=== PATIENT | female | born 1935 | race Two or more races ===

== ENCOUNTER 2017-04-04 22:11 | Inpatient (IN) | payer MEDICARE, OTHER ==
[~2017-04-04] VITALS: Ht 162.6 cm; Wt 76.7 kg
[2017-04-04 20:00] VITALS: BP 146/66
[2017-04-05] MEDS ORDERED: MAGNESIUM HYDROXIDE 30 ML UDC PO PRN (02:00)
[2017-04-05] MEDS ORDERED: MAG HYDROX/AL HYDROX/SIMETH 30 ML UDC PO PRN (02:00)
[2017-04-05] MEDS ORDERED: ACETAMINOPHEN 325 MG TABLET PO PRN (02:00)
--- NOTE | 2017-04-05 02:00 | NUR ---
GPS RN NOTES: ADMITTED A 81-Y/O, FEMALE, FROM [facility] TRANSPORTED VIA GURNEY ACCOMPANIED BY 2 AMBULANCE PERSONNEL, ADMITTED ON 5150 HOLD FOR DTS. PER HOLD PATIENT WANTED TO HURT AND KILL HERSELF, SHE WANTED TO BECAUSE SHE STATED NO ONE CARES, SHE WANTED TO GIVE AWAY HER THINGS, THEN DRINK SOMETHING THAT WOULD KILL HER. UPON FACE TO FACE EVALUATION, PATIENT IS ALERT, ORIENTED X1, ANXIOUS WITH CONFUSION. PATIENT DID NOT VERBALIZE SI/HI/DENIES VISUAL/AUDITORY HALLUCINATIONS AT THIS TIME. PATIENT SHOWS NO S/S OF PAIN, RESPIRATION EVEN, BREATHING PATTERN NON-LABORED, PATIENT RIGHT WAS EXPLAINED TO HIM AND PATIENT RIGHT BOOKLET WAS GIVEN TO HER. PATIENT WAS ORIENTED IN THE UNIT AND UNIT POLICIES, BELONGINGS WERE INVENTORIED AND CHECKED FOR CONTRABAND. SKIN BODY ASSESSMENT DONE. DR. HOUGH MADE AWARE OF ADMISSION AND ORDERS OBTAINED, PATIENT IS UNDER THE MEDICAL CARE OF DR. GOODWIN AND NOTIFIED TO RECONCILE MEDICATIONS. MRSA SWAB DONE. PATIENT MADE COMFORTABLE IN BED, WILL CONTINUE TO MONITOR [id number] FOR SAFETY AND BEHAVIOR.
[2017-04-05] MEDS ORDERED: ATOR20TA PO (02:24)
[2017-04-05] MEDS ORDERED: DIGO125T PO (02:24)
[2017-04-05] MEDS ORDERED: CARV3.122 PO (02:24)
[2017-04-05] MEDS ORDERED: QUET25TA PO (02:24)
[2017-04-05] MEDS ORDERED: POLY17PO4 PO (02:24)
[2017-04-05] MEDS ORDERED: INSU100V7 SQ (02:24)
[2017-04-05] MEDS ORDERED: SERT50TA PO (02:24)
[2017-04-05] MEDS ORDERED: METF850T2 PO (02:24)
[2017-04-05] MEDS ORDERED: FURO20TA4 PO (02:24)
[2017-04-05] MEDS ORDERED: CIPR-263 PO (02:24)
[2017-04-05] MEDS ORDERED: CHOL200026 PO (02:24)
[2017-04-05] MEDS ORDERED: DONE5TAB7 PO (02:24)
[2017-04-05] MEDS ORDERED: VALP250C3 PO (02:24)
[2017-04-05] MEDS ORDERED: GLIM4TAB2 PO (02:24)
[2017-04-05] MEDS ORDERED: POTA10TA15 PO (02:24)
[2017-04-05 02:30] VITALS: BP 146/66
[2017-04-05 04:24] VITALS: BP 140/66
--- NOTE | 2017-04-05 06:05 | NUR ---
GPS RN NOTES: PLACED A CALL TO RESPONSIBLE DEMOCRAT DENISE GARZA ([phone]) PHONE DISCONNECTED NO LONGER IN SERVICE. WILL ENDORSE TO INCOMING SHIFT.
--- NOTE | 2017-04-05 07:26 | NUR ---
[id number]: BLOOD SUGAR IS 80 MG/DL AND NO INSULIN REQUIRED AT THIS TIME
[2017-04-05] MEDS ORDERED: DEXTROSE 50%-WATER 50 ML DISP.SYRIN IV PRN (07:30)
[2017-04-05 08:00] VITALS: BP 160/90
[2017-04-05] MEDS: BLOOD SUGAR DIAGNOSTIC 1 EACH STRIP IN SCH ×4 (08:38→21:53)
[2017-04-05] MEDS: LORAZEPAM 0.5 MG TABLET PO PRN (08:57)
--- NOTE | 2017-04-05 08:57 | NUR ---
[id number]: GAVE ATIVAN 0.5 MG PO DUE TO SEVERE ANXIETY UPON PT REQUEST AND WILL CONTINUE TO MONITOR FOR EFFECTIVENESS OF MEDICATION
--- NOTE | 2017-04-05 12:11 | NUR ---
[id number]: BLOOD SUGAR 125 MG/DL AND NO INSULIN REQUIRED AT THIS TIME
[2017-04-05] MEDS: DIVALPROEX SODIUM 125 MG CAP.SPRINK PO SCH ×2 (14:56→21:12)
[2017-04-05] MEDS: QUETIAPINE FUMARATE 25 MG TABLET PO SCH ×3 (14:56→21:18)
[2017-04-05 16:00] VITALS: BP 125/80
[2017-04-05] MEDS: INSULIN REGULAR, HUMAN 100 UNIT/ML 3 ML VIAL SQ PRN ×2 (17:39→21:53)
--- NOTE | 2017-04-05 18:00 | NUR ---
[id number]: CALLED [facility] RO DR. MCCLAIN TO RECONCILED MEDICATIONS. PENDING RETURN PHONE CALL.
[2017-04-05] MEDS: FUROSEMIDE 20 MG TABLET PO SCH (18:38)
[2017-04-05] MEDS: CHOLECALCIFEROL 1,000 UNIT TABLET (VIT D3) PO SCH (18:38)
[2017-04-05] MEDS: CARVEDILOL 3.125 MG TABLET PO SCH (18:39)
[2017-04-05 20:04] VITALS: BP 150/76
[2017-04-05] MEDS: SIMVASTATIN 40 MG TABLET PO SCH (21:13)
[2017-04-05] MEDS: DONEPEZIL 5 MG TABLET PO SCH (21:15)
[2017-04-05] MEDS ORDERED: DONEPEZIL 5 MG TABLET PO SCH (22:00)
[2017-04-06] MEDS: TEMAZEPAM 7.5 MG CAPSULE PO PRN ×2 (01:41→22:50)
[2017-04-06 07:27] LABS: BASOPHILS % (AUTO) 0.4 % (0.0-2.0); EOSINOPHILS # (AUTO) 0.3 /CMM (0.0-0.7); EOSINOPHILS % (AUTO) 4.6 % (0.0-6.0); HEMATOCRIT 38 % (33-45); HEMOGLOBIN 12.4 g/dL (11.5-14.8); LYMPHOCYTES # (AUTO) 1.7 /CMM (0.8-4.8); LYMPHOCYTES % (AUTO) 26.7 % (20.0-44.0); MEAN CORPUSCULAR HEMOGLOBIN 28 PG (26.0-33.0); MEAN CORPUSCULAR HGB CONC 33 g/dl (31.0-36.0); MEAN CORPUSCULAR VOLUME 84 fL (82-100); MONOCYTES # (AUTO) 0.7 /CMM (0.1-1.30); MONOCYTES % (AUTO) 10.5 % (2.0-12.0); NEUTROPHILS # (AUTO) 3.6 /CMM (1.8-8.9); NEUTROPHILS % (AUTO) 57.8 % (43.0-81.0); PLATELET COUNT (AUTO) 184 /CMM (150-450); RDW COEFFICIENT OF VARIATION 17.9 (11.5-15.0); RED BLOOD CELL COUNT(AUTO) 4.51 MIL/uL (4.0-5.2); WHITE BLOOD COUNT (AUTO) 6.3 K/uL (4.3-11.0)
[2017-04-06 07:49] LABS: DIGOXIN 0.35 ng/mL (0.90-2.00)
[2017-04-06 07:53] LABS: ALANINE AMINOTRANSFERASE 34 U/L (12-78); ALBUMIN 3.2 g/dL (3.4-5.0); ALKALINE PHOSPHATASE 65 U/L (46-116); ASPARTATE AMINOTRANSFERASE 48 U/L (15-37); BILIRUBIN,TOTAL 0.5 mg/dL (0.2-1.0); CALCIUM, SERUM 9.1 mg/dL (8.5-10.1); CARBON DIOXIDE 31 mmol/L (21-32); CHLORIDE 104 mmol/L (98-107); CREATININE 0.6 mg/dL (0.6-1.3); GLUCOSE 145 mg/dL (74-106); MAGNESIUM 1.8 mg/dL (1.8-2.4); PHOSPHORUS 3.2 mg/dL (2.5-4.9); POTASSIUM 3.4 mmol/L (3.5-5.1); SODIUM SERUM 143 mmol/L (136-145); TOTAL PROTEIN, SERUM 7.9 g/dL (6.4-8.2); UREA NITROGEN, BLOOD 18 mg/dL (7-18)
[2017-04-06 08:00] VITALS: BP 144/67
[2017-04-06] MEDS: DIVALPROEX SODIUM 125 MG CAP.SPRINK PO SCH ×2 (08:10→20:17)
[2017-04-06] MEDS: CARVEDILOL 3.125 MG TABLET PO SCH ×2 (08:11→17:39)
[2017-04-06] MEDS: QUETIAPINE FUMARATE 25 MG TABLET PO SCH ×3 (08:11→21:15)
[2017-04-06] MEDS: CHOLECALCIFEROL 1,000 UNIT TABLET (VIT D3) PO SCH (08:11)
[2017-04-06] MEDS: BLOOD SUGAR DIAGNOSTIC 1 EACH STRIP IN SCH ×4 (08:12→21:59)
[2017-04-06] MEDS: INSULIN REGULAR, HUMAN 100 UNIT/ML 3 ML VIAL SQ PRN ×2 (08:18→22:43)
[2017-04-06] MEDS: DIGOXIN 0.125 MG TABLET PO SCH (08:45)
[2017-04-06] MEDS: GLIMEPIRIDE 4 MG TABLET PO SCH ×2 (08:48→09:00)
[2017-04-06] MEDS: METFORMIN 500 MG TABLET PO SCH ×2 (08:49→09:00)
[2017-04-06] MEDS: FUROSEMIDE 20 MG TABLET PO SCH ×2 (09:00→09:05)
[2017-04-06] MEDS: POLYETHYLENE GLYCOL 3350 17 GM POWD.PACK PO SCH ×2 (09:00→09:05)
[2017-04-06] MEDS: POTASSIUM CHLORIDE 10 MEQ TABLET.SA PO SCH ×2 (09:00→09:08)
[2017-04-06] MEDS: SERTRALINE HCL 25 MG TABLET PO SCH (09:06)
--- NOTE | 2017-04-06 12:11 | NUR ---
GPS/RN PATIENT REFUSED BS CHECK X 3, EXPLAINED RISKS AND BENEFITS, WILL CONTINUE TO ENCOURAGE TO FOLLOW MD REGIMEN.
--- NOTE | 2017-04-06 12:16 | NUR ---
GPS/RN PATIENT SELECTIVE WITH MORNING MEDS, EXPLAINED RISKS AND BENEFITS, WILL CONTINUE TO ENCOURAGE TO COMPLY WITH MD REGIMEN.
[2017-04-06 16:18] VITALS: BP 140/74
--- NOTE | 2017-04-06 17:30 | NUR ---
GPS/RN PATIENT REFUSED BS CHECK X 3, EXPLAINED RISKS AND BENEFITS, WILL CONTINUE TO ENCOURAGE TO FOLLOW MD REGIMEN.
[2017-04-06 19:25] LABS: CALCIUM, SERUM 9.6 mg/dL (8.5-10.1); CARBON DIOXIDE 32 mmol/L (21-32); CHLORIDE 105 mmol/L (98-107); CREATININE 0.8 mg/dL (0.6-1.3); GLUCOSE 189 mg/dL (74-106); SODIUM SERUM 143 mmol/L (136-145); UREA NITROGEN, BLOOD 20 mg/dL (7-18)
[2017-04-06 20:04] VITALS: BP 141/73
[2017-04-06] MEDS: SIMVASTATIN 40 MG TABLET PO SCH (21:16)
[2017-04-06] MEDS: DONEPEZIL 5 MG TABLET PO SCH (21:17)
--- NOTE | 2017-04-06 22:00 | NUR ---
GPS RN NOTES: PATIENT REFUSED SCHEDULED ACCUCHECK, OFFERED 3X, PATIENT STRONGLY REFUSED, DESPITE OF EXPLANATION THE RISKS AND BENEFITS. WILL CONTINUE TO MONITOR.
--- NOTE | 2017-04-06 22:43 | NUR ---
GPS RN NOTES: PATIENT AGREES TO HAVE BLOOD SUGAR CHECK, BS RESULT 173MG/DL, 3UNITS OF REGULAR INSULIN GIVEN ORDERED. WILL CONTINUE TO MONITOR.
[2017-04-07] MEDS: LORAZEPAM 0.5 MG TABLET PO PRN (00:59)
[2017-04-07 08:00] VITALS: BP 140/64
[2017-04-07] MEDS: BLOOD SUGAR DIAGNOSTIC 1 EACH STRIP IN SCH ×4 (08:54→21:37)
[2017-04-07] MEDS: DIGOXIN 0.125 MG TABLET PO SCH ×2 (09:00→13:59)
[2017-04-07] MEDS: QUETIAPINE FUMARATE 25 MG TABLET PO SCH ×3 (09:00→21:15)
[2017-04-07] MEDS: CARVEDILOL 3.125 MG TABLET PO SCH ×2 (09:00→16:52)
[2017-04-07] MEDS: POLYETHYLENE GLYCOL 3350 17 GM POWD.PACK PO SCH (09:00)
[2017-04-07] MEDS: GLIMEPIRIDE 4 MG TABLET PO SCH ×2 (09:00→14:00)
[2017-04-07] MEDS: METFORMIN 500 MG TABLET PO SCH ×2 (09:00→13:59)
[2017-04-07] MEDS: SERTRALINE HCL 25 MG TABLET PO SCH ×2 (09:00→14:00)
[2017-04-07] MEDS: CHOLECALCIFEROL 1,000 UNIT TABLET (VIT D3) PO SCH ×2 (09:00→13:59)
[2017-04-07] MEDS: DIVALPROEX SODIUM 125 MG CAP.SPRINK PO SCH ×3 (09:00→21:14)
[2017-04-07] MEDS: POTASSIUM CHLORIDE 10 MEQ TABLET.SA PO SCH ×2 (09:00→14:01)
[2017-04-07] MEDS: FUROSEMIDE 20 MG TABLET PO SCH ×2 (09:00→13:59)
--- NOTE | 2017-04-07 09:00 | NUR ---
GPS/RN PATIENT SLEEPING, REPORTED THAT PATIENT SLEPT ONLY 2 HOURS LAST NIGHT. AROUSABLE TO NAME BUT IS VERY GROGGY, REFUSED BREAKFAST, REFUSED MEDICATION, WILL OFFER AGAIN WHEN PATIENT WAKES UP. BS IS 143, UNABLE TO ADMINISTER 2 UNITS REGULAR DUE TO PATIENT REFUSING BREAKFAST. WILL CONTINUE TO MONITOR.
[2017-04-07] MEDS: INSULIN REGULAR, HUMAN 100 UNIT/ML 3 ML VIAL SQ PRN ×2 (13:26→17:20)
--- NOTE | 2017-04-07 14:00 | NUR ---
GPS/RN BS 147, 2 UNITS REGULAR INSULIN ADMINISTERED, WILL CONTINUE TO MONITOR.
--- NOTE | 2017-04-07 14:03 | NUR ---
GPS/RN PATIENT AWAKE AND ALERT, OFFERED AND ADMINISTERED 0900 DAILY MEDS.
[2017-04-07 14:05] VITALS: BP 146/74
--- NOTE | 2017-04-07 14:40 | NUR ---
GPS/RN CHANGED DEPAKOTE SPRINKLE 125 MG PO Q 12 HR, TO DEPAKOTE SPRINKLE 250 MG PO Q [address] ALVAREZ, INPUTTED IN SYSTEM.
[2017-04-07 16:00] VITALS: BP 141/70
--- NOTE | 2017-04-07 17:54 | NUR ---
GPS/RN BS 140, 2 UNITS REGULAR INSULIN ADMINISTERED, WILL CONTINUE TO MONITOR.
[2017-04-07 20:15] VITALS: BP 153/66
[2017-04-07] MEDS: SIMVASTATIN 40 MG TABLET PO SCH (21:14)
[2017-04-07] MEDS: DONEPEZIL 5 MG TABLET PO SCH (21:14)
[2017-04-07] MEDS: TEMAZEPAM 7.5 MG CAPSULE PO PRN (22:08)
[2017-04-08] MEDS: BLOOD SUGAR DIAGNOSTIC 1 EACH STRIP IN SCH ×4 (07:25→22:00)
[2017-04-08 08:00] VITALS: BP 137/54
--- NOTE | 2017-04-08 08:44 | NUR ---
Initial Discharge Note: Patient resides at [address] [place] [id number] / [phone]. Patient lives with her . However, family can no longer provide care for patient. ANA M spoke with patient's son, who stated that the family decided on a SNF placement. Patient's son asked SW to attempt to find a facility in [facility] so that it is easier for patient's to visit her. SW stated that she will do her best, but cannot promise that placement will be secured in [facility]. SW to follow up with MD and facilitate safe and proper discharge.
[2017-04-08] MEDS: DIVALPROEX SODIUM 125 MG CAP.SPRINK PO SCH ×2 (08:53→21:05)
[2017-04-08] MEDS: QUETIAPINE FUMARATE 25 MG TABLET PO SCH ×3 (08:54→21:06)
[2017-04-08] MEDS: DIGOXIN 0.125 MG TABLET PO SCH (08:54)
[2017-04-08] MEDS: METFORMIN 500 MG TABLET PO SCH (08:54)
[2017-04-08] MEDS: CHOLECALCIFEROL 1,000 UNIT TABLET (VIT D3) PO SCH (08:55)
[2017-04-08] MEDS: CARVEDILOL 3.125 MG TABLET PO SCH ×2 (08:55→17:11)
[2017-04-08] MEDS: POTASSIUM CHLORIDE 10 MEQ TABLET.SA PO SCH (08:55)
[2017-04-08] MEDS: FUROSEMIDE 20 MG TABLET PO SCH (08:55)
[2017-04-08] MEDS: SERTRALINE HCL 25 MG TABLET PO SCH (08:55)
[2017-04-08] MEDS: POLYETHYLENE GLYCOL 3350 17 GM POWD.PACK PO SCH (08:55)
[2017-04-08] MEDS: GLIMEPIRIDE 4 MG TABLET PO SCH (08:55)
[2017-04-08] MEDS ORDERED: Z GUARD REMEDY 2 OZ OINT TP PRN (09:30)
--- NOTE | 2017-04-08 09:33 | NUR ---
WOUND CARE CONSULT: PT PRESENTS WITH INCONTINENCE AND LEFT ABDOMINAL FOLD RASH PRESENT ON ADMISSION. RECOMMENDATIONS MADE FOR SKIN CARE AND PROTECTION. DISCUSSED WITH NURSING STAFF. CURRENT ARNEL SCORE IS 16. WILL SEE PRN. KATHLEEN IN AGREEMENT WITH PLAN OF CARE. Addendum: 04/08/17 at 0934 by TRAV CRUZ WNDNU Amended: Links added.
[2017-04-08] MEDS: CLOTRIMAZOLE 1% 15 GM TUBE TP SCH ×2 (11:45→17:12)
[2017-04-08] MEDS: Z GUARD REMEDY 2 OZ OINT TP SCH (11:46)
[2017-04-08] MEDS: INSULIN REGULAR, HUMAN 100 UNIT/ML 3 ML VIAL SQ PRN (12:24)
[2017-04-08 16:00] VITALS: BP 112/50
[2017-04-08 20:44] VITALS: BP 124/50
[2017-04-08] MEDS: DONEPEZIL 5 MG TABLET PO SCH (21:06)
[2017-04-08] MEDS: SIMVASTATIN 40 MG TABLET PO SCH (21:06)
[2017-04-08] MEDS: LORAZEPAM 0.5 MG TABLET PO PRN (21:50)
--- NOTE | 2017-04-08 22:06 | NUR ---
GPS RN NOTES: PATIENT REFUSED SCHEDULED ACCUCHECK, OFFERED 3X, PATIENT STRONGLY REFUSED, DESPITE OF EXPLANATION THE RISKS AND BENEFITS. WILL CONTINUE TO MONITOR.
[2017-04-09] MEDS: TEMAZEPAM 7.5 MG CAPSULE PO PRN ×2 (02:36→21:31)
--- NOTE | 2017-04-09 02:36 | NUR ---
GPS RN NOTES: PATIENT UNABLE TO SLEEP, VITAL SIGNS ARE STABLE, RESTORIL 7.5MG PO GIVEN PRN ORDER, PATIENT REFUSED MED, OFFERED 3X, EXPLAINED RISKS AND BENEFITS, PATIENT STILL REFUSED, WILL CONTINUE TO MONITOR.
[2017-04-09 08:00] VITALS: BP 139/69
[2017-04-09] MEDS: BLOOD SUGAR DIAGNOSTIC 1 EACH STRIP IN SCH ×4 (08:06→21:30)
--- NOTE | 2017-04-09 08:45 | NUR ---
Discharge Planning: faxed inquiry to [facility] [address], [place] [address] / fax number [phone]
--- NOTE | 2017-04-09 09:00 | NUR ---
NURSING NOTE BS 143 MG/DL PT REFUSED COVERAGE.
[2017-04-09] MEDS: SERTRALINE HCL 25 MG TABLET PO SCH (09:01)
[2017-04-09] MEDS: DIVALPROEX SODIUM 125 MG CAP.SPRINK PO SCH ×2 (09:01→21:00)
[2017-04-09] MEDS: FUROSEMIDE 20 MG TABLET PO SCH (09:01)
[2017-04-09] MEDS: CHOLECALCIFEROL 1,000 UNIT TABLET (VIT D3) PO SCH (09:02)
[2017-04-09] MEDS: QUETIAPINE FUMARATE 25 MG TABLET PO SCH ×3 (09:02→21:30)
[2017-04-09] MEDS: DIGOXIN 0.125 MG TABLET PO SCH (09:03)
[2017-04-09] MEDS: METFORMIN 500 MG TABLET PO SCH (09:03)
[2017-04-09] MEDS: POTASSIUM CHLORIDE 10 MEQ TABLET.SA PO SCH (09:03)
[2017-04-09] MEDS: CARVEDILOL 3.125 MG TABLET PO SCH ×2 (09:04→16:38)
[2017-04-09] MEDS: POLYETHYLENE GLYCOL 3350 17 GM POWD.PACK PO SCH (09:05)
[2017-04-09] MEDS: CLOTRIMAZOLE 1% 15 GM TUBE TP SCH ×2 (09:17→16:40)
[2017-04-09] MEDS: Z GUARD REMEDY 2 OZ OINT TP SCH (09:18)
[2017-04-09] MEDS: GLIMEPIRIDE 4 MG TABLET PO SCH (09:22)
[2017-04-09] MEDS: INSULIN REGULAR, HUMAN 100 UNIT/ML 3 ML VIAL SQ PRN ×3 (13:29→21:31)
--- NOTE | 2017-04-09 14:26 | NUR ---
Discharge Planning: Per Joyce at [facility] Tan[address], [place] [address] / fax number [phone], patient was accepted into the facility. SW to inform family.
--- NOTE | 2017-04-09 14:35 | NUR ---
Discharge Planning: SW called and updated patient's son, Meli [phone]. SW stated that she is working on securing placement for SW in the [facility]. SW stated that she will call son regarding any discharge updates. Please note this conversation occurred before ANA M was informed by Marcela Donato of patient's acceptance. SW will call son and confirm the discharge once a date has been set.
[2017-04-09 16:00] VITALS: BP 149/73
[2017-04-09] MEDS: LORAZEPAM 0.5 MG TABLET PO PRN (19:06)
--- NOTE | 2017-04-09 19:06 | NUR ---
NURSING NOTE ADMINISTERED ATIVAN 0.5 MG FOR SEVERE AGITATION, YELLING, SCREAMING IN [place], CONFUSED, DISORIENTED. WILL CONTINUE TO MONITOR FOR SAFETY.
[2017-04-09 20:00] VITALS: BP 150/65
[2017-04-09] MEDS: SIMVASTATIN 40 MG TABLET PO SCH (21:30)
[2017-04-09] MEDS: DONEPEZIL 5 MG TABLET PO SCH (21:30)
--- NOTE | 2017-04-09 21:32 | NUR ---
GPS/ RESTORATIVE COORDINATOR NOTES: ACCUCHECK DONE. BS NOTED AT 139. PT. REFUSED HS COVERAGE PER SLIDING SCALE ORDERED. OFFERED 3X. EXPLAINED RISK AND BENEFITS. PT. STILL REFUSED.
--- NOTE | 2017-04-09 21:33 | NUR ---
GPS/GENERAL CONTRACTOR NOTES: PT. REFUSED ALL HS MEDS. THREW WATER AT STAFF. OFFERED 3X. EXPLAINED RISK AND BENEFITS. PT. STILL REFUSED. WILL CONTINUE TO MONITOR.
[2017-04-10] MEDS: BLOOD SUGAR DIAGNOSTIC 1 EACH STRIP IN SCH ×4 (07:30→21:57)
[2017-04-10 08:00] VITALS: BP 113/73
--- NOTE | 2017-04-10 08:29 | NUR ---
GPS/RN pt refused accucheck offered x3
--- NOTE | 2017-04-10 09:46 | NUR ---
Discharge Planning: At the request of family, ANA M faxed inquiries to the following facilities: [facility] [address], [place] [address] [facility] [address] [place] [address] [facility] [address], [place] [id number] [facility] [address] [place], [place] [address] [facility] [address] [place] [id number] , [place] [address] ANA M to follow up.
[2017-04-10] MEDS: DIVALPROEX SODIUM 125 MG CAP.SPRINK PO SCH ×2 (09:53→21:10)
[2017-04-10] MEDS: POLYETHYLENE GLYCOL 3350 17 GM POWD.PACK PO SCH (09:53)
[2017-04-10] MEDS: METFORMIN 500 MG TABLET PO SCH (09:53)
[2017-04-10] MEDS: CARVEDILOL 3.125 MG TABLET PO SCH ×2 (09:53→17:23)
[2017-04-10] MEDS: DIGOXIN 0.125 MG TABLET PO SCH (09:53)
[2017-04-10] MEDS: SERTRALINE HCL 25 MG TABLET PO SCH (09:53)
[2017-04-10] MEDS: CHOLECALCIFEROL 1,000 UNIT TABLET (VIT D3) PO SCH (09:53)
[2017-04-10] MEDS: FUROSEMIDE 20 MG TABLET PO SCH (09:54)
[2017-04-10] MEDS: POTASSIUM CHLORIDE 10 MEQ TABLET.SA PO SCH (09:54)
[2017-04-10] MEDS: QUETIAPINE FUMARATE 25 MG TABLET PO SCH ×3 (09:55→21:10)
[2017-04-10] MEDS: GLIMEPIRIDE 4 MG TABLET PO SCH (09:55)
[2017-04-10] MEDS: Z GUARD REMEDY 2 OZ OINT TP SCH (12:16)
[2017-04-10] MEDS: CLOTRIMAZOLE 1% 15 GM TUBE TP SCH ×2 (12:16→17:20)
--- NOTE | 2017-04-10 12:17 | NUR ---
GPS/RN ACCUCHECK WITH FV=243. PT REFUSED IN SULIN COVERAGE
--- NOTE | 2017-04-10 13:00 | NUR ---
Discharge Planning: SW received a voicemail from [address] [address] . Patient was declined from facility.
--- NOTE | 2017-04-10 13:41 | NUR ---
Discharge Planning: [facility] [address], [place] [address] .NO INFORMATION YET [facility] [address] [place] [address] SW LEFT A VOICEMAIL MESSAGE FOR CRYSTAL IN ADMISSIONS WITH DIRECT CONTACT INFO TO FOLLOW UP ON REFERRAL [place] [address], [place], [place] [id number] PER VICTORIANO, NO BEDS AVAILABLE [address] [address] PER CHRIS, NO BEDS AVAILABLE [address] , [place] [address] PER HAFSA, CURRENTLY NO BEDS AVAILABLE
--- NOTE | 2017-04-10 14:49 | NUR ---
Discharge Planning: ANA M faxed inquiries to [facility]: [phone] / fax # [phone] [facility]: [phone] / fax # [phone]
--- NOTE | 2017-04-10 14:49 | NUR ---
Discharge planning: SW received a message that stated facility cannot accommodate patient. [facility] [address], [place], [place] [address]
[2017-04-10 16:00] VITALS: BP 129/69
--- NOTE | 2017-04-10 17:34 | NUR ---
GPS/RN PT REFUSED ACCUCHECK SHE GOT AGITATED FOLLOWING DIAPER CHANGE BY TICKET MARKER.
[2017-04-10 20:00] VITALS: BP 121/89
[2017-04-10] MEDS: DONEPEZIL 5 MG TABLET PO SCH (21:10)
[2017-04-10] MEDS: SIMVASTATIN 40 MG TABLET PO SCH (21:10)
[2017-04-10] MEDS: TEMAZEPAM 7.5 MG CAPSULE PO PRN (22:02)
[2017-04-11] MEDS: BLOOD SUGAR DIAGNOSTIC 1 EACH STRIP IN SCH ×4 (07:30→21:56)
[2017-04-11 08:10] VITALS: BP 162/87
[2017-04-11] MEDS: CHOLECALCIFEROL 1,000 UNIT TABLET (VIT D3) PO SCH (08:12)
[2017-04-11] MEDS: POLYETHYLENE GLYCOL 3350 17 GM POWD.PACK PO SCH (08:12)
[2017-04-11] MEDS: SERTRALINE HCL 25 MG TABLET PO SCH (08:13)
[2017-04-11] MEDS: FUROSEMIDE 20 MG TABLET PO SCH (08:13)
[2017-04-11] MEDS: QUETIAPINE FUMARATE 25 MG TABLET PO SCH ×3 (08:13→21:41)
[2017-04-11] MEDS: DIGOXIN 0.125 MG TABLET PO SCH (08:13)
[2017-04-11] MEDS: POTASSIUM CHLORIDE 10 MEQ TABLET.SA PO SCH (08:13)
[2017-04-11] MEDS: DIVALPROEX SODIUM 125 MG CAP.SPRINK PO SCH ×3 (08:14→17:50)
[2017-04-11] MEDS: CARVEDILOL 3.125 MG TABLET PO SCH ×2 (08:14→17:51)
[2017-04-11] MEDS: GLIMEPIRIDE 4 MG TABLET PO SCH (08:14)
[2017-04-11] MEDS: CLOTRIMAZOLE 1% 15 GM TUBE TP SCH ×2 (08:15→17:51)
[2017-04-11] MEDS: Z GUARD REMEDY 2 OZ OINT TP SCH (08:15)
[2017-04-11] MEDS: METFORMIN 500 MG TABLET PO SCH (08:15)
--- NOTE | 2017-04-11 10:04 | NUR ---
GPS/RN PT GOT AGITATED, PULLED OFF DIAPER AND THREW IT TOWARD THE STUFF. MEDICATED WITH ATIVAN 0.5MG PO ORDERED
[2017-04-11] MEDS: INSULIN REGULAR, HUMAN 100 UNIT/ML 3 ML VIAL SQ PRN (13:06)
[2017-04-11 15:58] VITALS: BP 144/77
[2017-04-11 20:00] VITALS: BP 135/70
[2017-04-11] MEDS: DONEPEZIL 5 MG TABLET PO SCH (21:41)
[2017-04-11] MEDS: SIMVASTATIN 40 MG TABLET PO SCH (21:41)
--- NOTE | 2017-04-12 00:46 | NUR ---
Pt' blood sugar level last night was 84 mg/dl & no Insulin was given per MD order. Snack was given & pt consumed 50% of it.
--- NOTE | 2017-04-12 00:46 | NUR ---
Pt has been confused, fragmented, disorganized, & with blunted/flat affect but compliant with care w/o any promptings.
[2017-04-12 06:41] LABS: BASOPHILS % (AUTO) 0.7 % (0.0-2.0); EOSINOPHILS # (AUTO) 0.2 /CMM (0.0-0.7); EOSINOPHILS % (AUTO) 4.3 % (0.0-6.0); HEMATOCRIT 37 % (33-45); HEMOGLOBIN 12.3 g/dL (11.5-14.8); LYMPHOCYTES # (AUTO) 1.5 /CMM (0.8-4.8); LYMPHOCYTES % (AUTO) 27.8 % (20.0-44.0); MEAN CORPUSCULAR HEMOGLOBIN 28 PG (26.0-33.0); MEAN CORPUSCULAR HGB CONC 33 g/dl (31.0-36.0); MEAN CORPUSCULAR VOLUME 84 fL (82-100); MONOCYTES # (AUTO) 0.6 /CMM (0.1-1.30); MONOCYTES % (AUTO) 11.6 % (2.0-12.0); NEUTROPHILS % (AUTO) 55.6 % (43.0-81.0); PLATELET COUNT (AUTO) 164 /CMM (150-450); RDW COEFFICIENT OF VARIATION 16.5 (11.5-15.0); WHITE BLOOD COUNT (AUTO) 5.3 K/uL (4.3-11.0)
[2017-04-12 07:52] LABS: CALCIUM, SERUM 9.1 mg/dL (8.5-10.1); CARBON DIOXIDE 29 mmol/L (21-32); CHLORIDE 107 mmol/L (98-107); CREATININE 0.5 mg/dL (0.6-1.3); GLUCOSE 103 mg/dL (74-106); MAGNESIUM 1.9 mg/dL (1.8-2.4); POTASSIUM 3.7 mmol/L (3.5-5.1); SODIUM SERUM 144 mmol/L (136-145); UREA NITROGEN, BLOOD 18 mg/dL (7-18)
[2017-04-12 08:00] VITALS: BP 158/69
[2017-04-12] MEDS: BLOOD SUGAR DIAGNOSTIC 1 EACH STRIP IN SCH ×4 (08:26→21:46)
[2017-04-12] MEDS: CHOLECALCIFEROL 1,000 UNIT TABLET (VIT D3) PO SCH (08:26)
[2017-04-12] MEDS: DIGOXIN 0.125 MG TABLET PO SCH (08:27)
[2017-04-12] MEDS: POTASSIUM CHLORIDE 10 MEQ TABLET.SA PO SCH (08:27)
[2017-04-12] MEDS: QUETIAPINE FUMARATE 25 MG TABLET PO SCH ×3 (08:27→21:36)
[2017-04-12] MEDS: METFORMIN 500 MG TABLET PO SCH (08:27)
[2017-04-12] MEDS: CARVEDILOL 3.125 MG TABLET PO SCH ×2 (08:27→16:18)
[2017-04-12] MEDS: POLYETHYLENE GLYCOL 3350 17 GM POWD.PACK PO SCH (08:28)
[2017-04-12] MEDS: SERTRALINE HCL 25 MG TABLET PO SCH (08:28)
[2017-04-12] MEDS: FUROSEMIDE 20 MG TABLET PO SCH (08:29)
[2017-04-12] MEDS: GLIMEPIRIDE 4 MG TABLET PO SCH (08:30)
[2017-04-12] MEDS: DIVALPROEX SODIUM 125 MG CAP.SPRINK PO SCH ×3 (08:30→16:18)
[2017-04-12] MEDS: CLOTRIMAZOLE 1% 15 GM TUBE TP SCH ×2 (09:22→16:18)
[2017-04-12] MEDS: Z GUARD REMEDY 2 OZ OINT TP SCH (09:23)
--- NOTE | 2017-04-12 10:39 | NUR ---
GPS/RN NOTE: PT IN HER ROOM LYING IN BED DEPRESSED, CRYING ABOUT HER BROTHERS. MEDICATIONS GIVEN PER ORDER PT COMPLIANT, PT A/O X1, CONFUSED, DISORGANIZED, REALITY ORIENTATION PROVIDED. ALL NEEDS ATTENDED AND ANTICIPATED, FALL PRECAUTIONS OBSERVED, WILL CONTINUE TO MONITOR [id number] FOR SAFETY AND BEHAVIOR.
[2017-04-12] MEDS: LORAZEPAM 0.5 MG TABLET PO PRN (15:44)
[2017-04-12 16:00] VITALS: BP 120/78
--- NOTE | 2017-04-12 19:30 | NUR ---
RN OPENING NOTES PT IS SITTNG IN ACTIVITY ROOM, ALERT AND ORIENTED X1, CONFUSED AND DISORGANIZED, AND NEEDS CONSTANT REORIENTATION. VS STABLE. RESPIRATIONS EVEN AND UNLABORED. FALL PRECAUTIONS OBSERVED AND SAFETY MEASURES IMPLEMENTED.WILL CONTINUE TO MONITOR [id number] FOR SAFETY AND BEHAVIOR.
[2017-04-12 19:42] VITALS: BP 119/85
[2017-04-12] MEDS: DONEPEZIL 5 MG TABLET PO SCH (21:36)
[2017-04-12] MEDS: SIMVASTATIN 40 MG TABLET PO SCH (21:36)
[2017-04-12] MEDS: INSULIN REGULAR, HUMAN 100 UNIT/ML 3 ML VIAL SQ PRN (22:12)
[2017-04-13 08:00] VITALS: BP 136/61
[2017-04-13] MEDS: POLYETHYLENE GLYCOL 3350 17 GM POWD.PACK PO SCH (08:30)
[2017-04-13] MEDS: METFORMIN 500 MG TABLET PO SCH (08:30)
[2017-04-13] MEDS: GLIMEPIRIDE 4 MG TABLET PO SCH (08:30)
[2017-04-13] MEDS: CHOLECALCIFEROL 1,000 UNIT TABLET (VIT D3) PO SCH (08:30)
[2017-04-13] MEDS: SERTRALINE HCL 25 MG TABLET PO SCH (08:30)
[2017-04-13] MEDS: QUETIAPINE FUMARATE 25 MG TABLET PO SCH ×4 (08:30→21:50)
[2017-04-13] MEDS: POTASSIUM CHLORIDE 10 MEQ TABLET.SA PO SCH (08:30)
[2017-04-13] MEDS: DIVALPROEX SODIUM 125 MG CAP.SPRINK PO SCH ×3 (08:30→16:52)
[2017-04-13] MEDS: FUROSEMIDE 20 MG TABLET PO SCH (08:31)
[2017-04-13] MEDS: CARVEDILOL 3.125 MG TABLET PO SCH ×3 (08:31→16:57)
[2017-04-13] MEDS: DIGOXIN 0.125 MG TABLET PO SCH (08:33)
[2017-04-13] MEDS: BLOOD SUGAR DIAGNOSTIC 1 EACH STRIP IN SCH ×4 (08:45→21:41)
[2017-04-13] MEDS: CLOTRIMAZOLE 1% 15 GM TUBE TP SCH ×2 (09:23→17:22)
--- NOTE | 2017-04-13 09:40 | NUR ---
Discharge Planning: Per Kathy from [facility]: [phone] / fax # [phone], patient is not "a good fit" for facility. Acceptance was denied.
[2017-04-13] MEDS: Z GUARD REMEDY 2 OZ OINT TP SCH (12:50)
[2017-04-13] MEDS: INSULIN REGULAR, HUMAN 100 UNIT/ML 3 ML VIAL SQ PRN ×2 (12:52→21:39)
--- NOTE | 2017-04-13 13:15 | NUR ---
GPS/RN BS 196, 3 UNITS REGULAR INSULIN ADMINISTERED, WILL CONTINUE TO MONITOR.
--- NOTE | 2017-04-13 14:42 | NUR ---
Discharge Planning: ANA M faxed: [facility]: [phone] / fax #[phone]: Srinivas Higgins, patient was not accepted [facility]: [phone] / fax #[phone] [facility]: [phone] / fax #[phone] [facility]: / fax#
--- NOTE | 2017-04-13 15:47 | NUR ---
Discharge Planning: SW called and spoke with patient's son, Meli [phone] in the morning on 04/13. SW explained that other facilities that SW has faxed to have rejected the patient. SW stated that the family needs to make a decision regarding patient's discharge plan. Meli stated that he wants more options. SW stated that she will attempt to find another option but the facts remain that patient has been accepted to one facility and that there has been no luck with others. ANA M stated that patient is ready for discharge and that the discharge cannot be delayed.
--- NOTE | 2017-04-13 15:52 | NUR ---
Discharge Planning: Epi from [facility]: [phone] / fax #[phone] came to assess the patient and stated that the patient did not have a strong enough skilled need.
--- NOTE | 2017-04-13 15:53 | NUR ---
Discharge Planning: ANA M called a left a voicemail message for patient's son Meli [phone]. ANA M wanted to discuss the discharge with Meli. ANA M left a message with her direct contact information.
[2017-04-13 16:00] VITALS: BP 146/58
[2017-04-13 20:03] VITALS: BP 132/52
[2017-04-13] MEDS: SIMVASTATIN 40 MG TABLET PO SCH ×2 (21:33→21:50)
[2017-04-13] MEDS: DONEPEZIL 5 MG TABLET PO SCH ×2 (21:33→21:50)
--- NOTE | 2017-04-13 22:00 | NUR ---
GPS RN NOTE WHILE TRYING TO GIVE PATIENT HER MEDICATION, SHE WAS EXTREMELY AGITATED. COMBATIVE. TRYING TO BITE THE SPECTACLE TRUER. SPIT OUT ALL OF HER MEDICATION. CALMING TECHNIQUES PROVIDED. WILL CONTINUE TO MONITOR.
--- NOTE | 2017-04-14 | NUR ---
GPS RN NOTE OCCASIONAL YELLING EPISODES. RELAXATION TECHNIQUES PROVIDED. WILL CONTINUE TO MONITOR.
[2017-04-14 08:08] VITALS: BP 166/79
[2017-04-14] MEDS: DIGOXIN 0.125 MG TABLET PO SCH (08:26)
[2017-04-14] MEDS: CHOLECALCIFEROL 1,000 UNIT TABLET (VIT D3) PO SCH (08:26)
[2017-04-14] MEDS: METFORMIN 500 MG TABLET PO SCH (08:27)
[2017-04-14] MEDS: POTASSIUM CHLORIDE 10 MEQ TABLET.SA PO SCH (08:28)
[2017-04-14] MEDS: DIVALPROEX SODIUM 125 MG CAP.SPRINK PO SCH ×3 (08:28→16:32)
[2017-04-14] MEDS: QUETIAPINE FUMARATE 25 MG TABLET PO SCH ×3 (08:28→21:01)
[2017-04-14] MEDS: FUROSEMIDE 20 MG TABLET PO SCH (08:28)
[2017-04-14] MEDS: SERTRALINE HCL 25 MG TABLET PO SCH (08:28)
[2017-04-14] MEDS: GLIMEPIRIDE 4 MG TABLET PO SCH (08:29)
[2017-04-14] MEDS: POLYETHYLENE GLYCOL 3350 17 GM POWD.PACK PO SCH (08:33)
[2017-04-14] MEDS: BLOOD SUGAR DIAGNOSTIC 1 EACH STRIP IN SCH ×4 (08:33→21:51)
[2017-04-14] MEDS: CARVEDILOL 3.125 MG TABLET PO SCH ×2 (08:33→16:34)
[2017-04-14] MEDS: Z GUARD REMEDY 2 OZ OINT TP SCH (08:35)
[2017-04-14] MEDS: CLOTRIMAZOLE 1% 15 GM TUBE TP SCH ×2 (08:35→17:03)
--- NOTE | 2017-04-14 10:33 | NUR ---
Discharge Note: ANA M spoke with patient's son Meli [phone]. Meli stated that the family has decided on [facility] as the facility to transfer the patient to. Meli stated that it was okay to discharge patient either today or tomorrow, depending on the bed availability. ANA M spoke with Joyce from [facility] [address] , [place] [address] / fax number [phone]. Joyce stated that she will confirm if a bed is available today in a half hour. SW to follow up. Addendum: 04/14/17 at 1131 by DAMIEN VIRAMONTES PLEASE NOTE THAT THIS IS A DISCHARGE PLANNING NOTE, NOT DISCHARGE NOTE
--- NOTE | 2017-04-14 11:34 | NUR ---
At the family's request, SW called and left a message for patient's cone picker, Dr. Theresa Gan, [address] [place], [place] [id number] [phone]. Family stated that Dr. Gan could offer some insight/assistance into placement.
--- NOTE | 2017-04-14 12:00 | NUR ---
GPS/RN PATIENT REFUSED BS CHECK X 3, EXPLAINED RISKS AND BENEFITS, WILL CONTINUE TO ENCOURAGE TO COMPLY WITH REGIMEN.
[2017-04-14 16:00] VITALS: BP 147/50
--- NOTE | 2017-04-14 17:04 | NUR ---
GPS/RN BS 127, NO COVERAGE GIVEN.
[2017-04-14 20:06] VITALS: BP 144/73
[2017-04-14] MEDS: DONEPEZIL 5 MG TABLET PO SCH (21:01)
[2017-04-14] MEDS: SIMVASTATIN 40 MG TABLET PO SCH (21:01)
--- NOTE | 2017-04-14 21:51 | NUR ---
GPS RN NOTES: PATIENT BS-130MG/DL NO COVERAGE GIVEN.
--- NOTE | 2017-04-15 07:30 | NUR ---
GPS RN OPENING NOTE. PT RECEIVED RESTING IN BED AND EASILY AWOKEN BY NAME. PT A&0X2, CONFUSED BUT CHEERFUL. PT DENIES THOUGHTS OF HARM TO SELF OR OTHERS. PT ASSISTED WITH REPOSITIONING. PT TOLERATING ROOM AIR WITHOUT S/S OF RESP DISTRESS AND SAO2 98%. PT DENIES PAIN. PT BED IN LOWEST LOCKED POSITION WITH HANDRAILSX2. WILL CONTINUE TO MONITOR.
[2017-04-15 08:00] VITALS: BP 128/54
[2017-04-15] MEDS: CARVEDILOL 3.125 MG TABLET PO SCH ×2 (09:00→17:22)
[2017-04-15] MEDS: DIVALPROEX SODIUM 125 MG CAP.SPRINK PO SCH ×3 (09:37→17:21)
[2017-04-15] MEDS: POTASSIUM CHLORIDE 10 MEQ TABLET.SA PO SCH (09:37)
[2017-04-15] MEDS: FUROSEMIDE 20 MG TABLET PO SCH (09:37)
[2017-04-15] MEDS: BLOOD SUGAR DIAGNOSTIC 1 EACH STRIP IN SCH ×3 (09:37→17:22)
[2017-04-15] MEDS: QUETIAPINE FUMARATE 25 MG TABLET PO SCH ×2 (09:38→17:20)
[2017-04-15] MEDS: METFORMIN 500 MG TABLET PO SCH (09:38)
[2017-04-15] MEDS: CHOLECALCIFEROL 1,000 UNIT TABLET (VIT D3) PO SCH (09:38)
[2017-04-15] MEDS: DIGOXIN 0.125 MG TABLET PO SCH (09:39)
[2017-04-15] MEDS: SERTRALINE HCL 25 MG TABLET PO SCH (09:39)
[2017-04-15] MEDS: GLIMEPIRIDE 4 MG TABLET PO SCH (09:40)
[2017-04-15] MEDS: POLYETHYLENE GLYCOL 3350 17 GM POWD.PACK PO SCH (09:41)
[2017-04-15] MEDS: Z GUARD REMEDY 2 OZ OINT TP SCH (09:41)
[2017-04-15] MEDS: CLOTRIMAZOLE 1% 15 GM TUBE TP SCH ×2 (09:41→17:00)
[2017-04-15] MEDS: INSULIN REGULAR, HUMAN 100 UNIT/ML 3 ML VIAL SQ PRN (12:58)
--- NOTE | 2017-04-15 13:01 | NUR ---
GPS RN NOTES. PT SITTING IN COMMON ROOM, DURING MED PASS PT BECAME TEARY AND VOCALIZED DESIRE TO . REASSURANCE AND DIVERSION GIVEN.
--- NOTE | 2017-04-15 15:09 | NUR ---
Discharge Note: Patient will be discharged to [facility]a [facility]ato [address], [place], [place] [address] / fax number [phone] via non-emergency medical transportation arranged by Marcela Donato. The transportation is set for 5pm. Patient's son, Meli [phone] is aware and in agreement. At the facility, patient will be under the care of maori physiotherapist, Dr. Resendez [address] [facility] [place] [address] [phone]. Patient will also be followed by psychiatrist, Dr. Galarza [address], [place] [address] [phone].
[2017-04-15 16:39] VITALS: BP 131/56
[2017-04-15] MEDS: LORAZEPAM 0.5 MG TABLET PO PRN (17:21)
[2017-04-15 17:22] VITALS: BP 131/56
[2017-04-15] MEDS ORDERED: LORAZEPAM 1 MG TABLET PO ONE (18:30)
--- NOTE | 2017-04-15 19:13 | NUR ---
DISCHARGE NOTES PATIENT DISCHARGE AT THIS TIME GOING SNF. PATIENT A/O X1, CONFUSED, MED COMPLIANT, MEDICALLY STABLE, NO C/O PAIN, V/S STABLE. PATIENT DENIED SI/HI/AVH AT THIS TIME OF DISCHARGE. MED RECONCILIATION AND DISCHARGE ORDER REVIEWED AND EXPLAINED TO. REPORT GIVEN SNF RN NAME JULISSA . RN VERBALIZED UNDERSTANDING. BELONGING RETURNED BACK TO THE PATIENT. PATIENT REFUSED PICTURE TO BE TAKEN, UNABLE TO SIGN PAPERWORK, PATIENT PARKING LOT SPOTTER BY SNF TRANSPORTER PHONE [phone].
== END 2017-04-15 19:13 | DRG 885 ==
LOC: GPS 04-05 01:50
PROVIDERS: ADMIT Psychiatry & Neurology Psychiatry; ATTEND Psychiatry & Neurology Psychiatry
DX: F29 Unspecified psychosis not due to a substance or known physiological condition (principal); F02.80 Dementia in other diseases classified elsewhere, unspecified severity, without behavioral disturbance, psychotic disturbance, mood disturbance, and anxiety; I11.0 Hypertensive heart disease with heart failure; F32.3 Major depressive disorder, single episode, severe with psychotic features; I50.20 Unspecified systolic (congestive) heart failure; I48.91 Unspecified atrial fibrillation; E11.9 Type 2 diabetes mellitus without complications; G30.9 Alzheimer's disease, unspecified; E78.5 Hyperlipidemia, unspecified; Z79.899 Other long term (current) drug therapy; Z79.84 Long term (current) use of oral hypoglycemic drugs
CPT/HCPCS: 36415; 80048-TC; 80053-TC; 80061-TC; 80162-TC; 80164-TC; 82962-TC; 83735-TC; 84100-TC; 85025-TC; 87081-TC; A4606; J1815; Z7610